=== PATIENT | female | born 1995 | race Caucasian/White ===

== ENCOUNTER 2023-06-09 16:24 | Inpatient (IN) | payer OTHER, SELFPAY ==
[2023-06-09] VITALS (28 sets, daily range): BP systolic 56–130; BP diastolic 30–110; BMI 41.3
--- NOTE | 2023-06-09 14:06 | ED.GENMED ---
History of Present Illness
General
Chief Complaint: Breathing Problem
Source: patient and other
Exam Limitations: clinical condition
Time Seen by Provider: 06/09/23 14:03
Travel History
Have you had any contact with someone who has COVID-19?: No
Do you have any symptoms of coronavirus? Fever > 100 degrees, chills, cough, shortness of breath, sore throat, loss of taste or smell, muscle aches, or headache?: Yes
Symptoms:: cough
History of Present Illness
History of Present Illness:
28-year-old female some cough and congestion the last few days. Significantly worse this morning. Presented to triage with a pulse ox in the 70s. Significant respiratory distress. History of opioid dependency. Has been at this facility for 1
week. Patient lives near [place].
Past History
Past History
ED Past Medical History: HTN and Other (Opioid dependency)
Review of Systems
Review of Systems
All Other Systems: Not applicable
Respiratory: Reports cough
Cardiac: Reports chest pain
Phy Exam
Physical Exam
Physical Exam:
GENERAL: Alert. Moderate respiratory distress. Significant hypoxia on arrival
EYE: Orbits normal.
NECK: Supple
CARDIAC: Tachycardic and regular no murmur
LUNGS: Coarse rhonchi throughout. Significant respiratory distress
ABDOMEN: Soft, without focal tenderness or distention
NEUROLOGICAL: Alert and oriented , grossly non-focal
SKIN: Warm and dry, no rash or lesion, no discoloration, skin intact.
MUSCULOSKELETAL: No edema,no deformity.Good color
PSYCH: Normal and appropriate interaction.
Course
Orders/Labs/Results
Orders:
Orders
06/09/23 14:05
CXR Port [CR Chest Portable - 1 View] Urgent
Comment:
Reason For Exam: sob
Reason Study Needs to be Portable: Unable to Transport
06/09/23 14:06
Electrocardiogram (*1) Stat
Reason for Study: Other
Other Reason for Exam: pneumonia
Cardiac Monitoring- Treatment ONCE
EKG- Treatment ONCE
IV Insert/Care/Rem.- Treatment PRN
O2 Therapy [RESP] Stat
Titrate/Wean O2 to maintain O2 sat greater than (%): 94
Pulse Ox/cont/shift [RESP] Stat
Quantity: 1
06/09/23 14:07
Test Result ONCE
06/09/23 14:15
Blood Culture Q30M
JOSÉ MIGUEL Source: Blood/Venous
Specimen Description:
06/09/23 14:16
Beta Hcg Serum Qualitative Screen [HCG, Serum Qualitative Screen] Urgent
COVID-19 Antigen Urgent
Source: Nasal Swab
Complete Blood Count/With Diff Urgent
Comprehensive Metabolic Panel Urgent
Lactic Acid Q4H
Comment: CANCEL 2nd LACTIC ACID IF 1st LACTIC ACID IS LESS THAN 2
Manual Differential Urgent
Pro-BNP [NT-proBNP] Urgent
Troponin I Urgent
Blood Culture Q30M
JOSÉ MIGUEL Source: Blood/Venous
Specimen Description:
Influenza A+B Rapid Molecular Urgent
JOSÉ MIGUEL Source: Nasal Swab
Specimen Description:
06/09/23 14:18
CefTRIAXone [Rocephin] 1,000 mg IV NOW STA
06/09/23 14:21
Venous Blood Gas Urgent
%Oxygen/Room Air: 100
06/09/23 14:26
Doxycycline Hyclate [Vibramycin] 100 mg 0.9% Sodium Chloride 250 ml [Nss] 250 ml IV NOW
06/09/23 14:35
Ondansetron Injectable [Zofran] 4 mg .ROUTE .STK-MED ONE
06/09/23 14:36
Ondansetron Injectable [Zofran] 4 mg IV NOW STA
06/09/23 14:39
0.9% Sodium Chloride 1000 ml [Nss] 1,000 ml IV BOLUS
Ipratropium/Albuterol Sulfate [Duoneb] 3 ml INH R NOW ONE
06/09/23 15:34
0.9% Sodium Chloride 1000 ml [Nss] 1,000 ml IV BOLUS
06/09/23 15:48
Ketorolac [Toradol] 15 mg .ROUTE .STK-MED ONE
Ketorolac [Toradol] 15 mg IV NOW STA
06/09/23 16:48
Lactic Acid Q4H
Comment: CANCEL 2nd LACTIC ACID IF 1st LACTIC ACID IS LESS THAN 2
Abnormal Lab Results
06/09/23 06/09/23
14:16 14:21
WBC 1.7 L* 10^3/uL
(4.8-10.8)
Abs Neuts (Manual) 1.0 L 10^3/uL
(1.4-6.5)
Segmented Neutrophils 34 L %
(42-75)
Band Neutrophils 26 H %
(0-3)
Monocytes (Manual) 15 H %
(2-9)
VBG pH 7.27 L
(7.32-7.43)
VBG pO2 54 H mmHg
(30-50)
VBG HCO3 19.7 L mmol/L
(22-27)
Sodium 134 L mmol/L
(135-145)
Carbon Dioxide 18 L mmol/L
(22-30)
Glucose 142 H mg/dl
(70-99)
Lactic Acid 3.2 H mmol/L
(0.7-2.0)
06/09/23 14:16
06/09/23 14:16
Vital Signs
Initial and Last Documented VS:
Initial Vital Signs
Temp Pulse Resp BP Pulse Ox
98.2 F 130 28 111/70 79
06/09/23 13:58 06/09/23 13:58 06/09/23 13:58 06/09/23 13:58 06/09/23 13:58
Last Documented Vital Signs
Temp Pulse Resp BP Pulse Ox
98.2 F 136 28 82/58 84
06/09/23 13:58 06/09/23 18:15 06/09/23 18:15 06/09/23 18:15 06/09/23 18:28
*Critical Care Note
Total Time (30-74mins, 75-104mins- exclusive of procedures): Not Applicable (70)
Update Note
Update Note:
1420... X-ray shows a severe bilateral pneumonia right greater than left. Discussed with radiology. Contacted pulmonary for their involvement. High flow nasal cannula workup in progress antibiotics.
1435.... updated at patient's okay. Explained her serious life-threatening nature.
1447... Many rechecks of this patient. Remains critically ill but doing okay on nonrebreather. Pulse ox about 90%.
1545.... I have been rechecking this patient multiple times. Pulse oxes have been running around 90%. Currently at 91%. Remains awake alert and able to speak. Appears clinically to be more of a oxygenation versus ventilation issue. Discussed
again and trying to get the patient to the ICU
1610... Oxygen saturations have actually gone up to 98%.
ED Attending Note
-
Portions of this chart may have been created with voice recognition software.� Occasional wrong word or��sound alike� substitutions may have occurred due to the inherent limitations of voice recognition software.
Discharge Plan
Departure
Patient Disposition: Admit
Date of Disposition: 06/09/23
Time of Disposition: 14:45
Presentation/result/management discussed w/ accepting MD/DO: Pulmonary
Discharge Problem:
Respiratory distress, Bilateral pneumonia, Influenza, Neutropenia
Interventions
Interventions:
*Risk Screen - Suicide Last Done: 06/09/23 15:57
*General Assessment Last Done: 06/09/23 14:33
*Neglect/Abuse Screening Last Done: 06/09/23 15:57
ED- Fall Risk Assessment Last Done: 06/09/23 14:05
*ED COVID-19 Vaccine History Last Done: 06/09/23 14:34
*Nursing Disposition Last Done: 06/09/23 16:50
ED- Cardiac Assessment Last Done: 06/09/23 14:05
ED- Pulmonary Assessment Last Done: 06/09/23 14:05
Discharge Date and Time
Discharge Date/Time: 06/09/23 16:52
[2023-06-09] MEDS: ROCEPHIN 1000 MG IV (14:24)
[2023-06-09 14:30] LABS: Hematocrit 40.5 % (37.0-47.0); Hemoglobin 13.8 g/dL (12.0-16.0); Mean Corp Hgb Conc. 34.1 g/dL (33.0-37.0); Mean Corpuscular Hgb 28.2 pg (27.0-31.0); Mean Corpuscular Volume 82.7 fL (81.0-99.0); Mean Platelet Volume 8.6 fL (7.4-10.4); Nucleated Red Blood Cells % 0 %; Platelet Count 288 10^3/uL (130-400); Red Cell Dist. Width 13.1 % (11.5-14.5)
[2023-06-09] MEDS: ZOFRAN 4 MG IV ×2 (14:36→19:27)
[2023-06-09 14:42] LABS: White Blood Cell Count 1.7 10^3/uL (4.8-10.8)
[2023-06-09 14:43] LABS: Lactic Acid 3.2 mmol/L (0.7-2.0)
[2023-06-09] MEDS: NSS 1000 IV ×2 (14:43→15:40)
[2023-06-09 14:48] LABS: COVID-19 Antigen Negative (Negative)
[2023-06-09 14:52] LABS: ALT (SGPT) 21 U/L (0-35); AST (SGOT) 27 U/L (14-36); Albumin 4.5 g/dl (3.5-5.0); Alkaline Phosphatase 115 U/L (38-126); Blood Urea Nitrogen 13 mg/dl (7-17); Calcium 8.5 mg/dl (8.4-10.2); Carbon Dioxide 18 mmol/L (22-30); Chloride 104 mmol/L (98-107); Estimated Creatinine Clearance 102 ml/min; Glucose 142 mg/dl (70-99); Sodium 134 mmol/L (135-145); Total Bilirubin 0.4 mg/dl (0.2-1.3); eGFR > 60.00
[2023-06-09 14:57] LABS: Venous Blood Gas HCO3 19.7 mmol/L (22-27); Venous Blood Gas O2 Sat % 85.9 %; Venous Blood Gas pCO2 43 mmHg (35-48); Venous Blood Gas pH 7.27 (7.32-7.43); Venous Blood Gas pO2 54 mmHg (30-50)
[2023-06-09 15:00] LABS: Venous Blood Gas O2 Therapy %Oxygen/Room Air 100
[2023-06-09 15:03] LABS: HCG, Serum Qualitative Screen Negative
[2023-06-09 15:19] LABS: Band Neutrophils 26 % (0-3); Lymphocytes 25 % (20-51); Monocytes 15 % (2-9); Platelets Checked YES; Segmented Neutrophils 34 % (42-75)
[2023-06-09 15:22] LABS: Normal RBC Morphology No
[2023-06-09 15:23] LABS: Ovalocytes FEW; Stomatocytes 1+
[2023-06-09 15:24] LABS: Total Cells Counted 100
[2023-06-09 15:25] LABS: Troponin I < 0.012 ng/ml
[2023-06-09] MEDS: VIBRAMYCIN 260 MG IV (15:25)
[2023-06-09 15:48] LABS: NT-proBNP 165 pg/ml
[2023-06-09] MEDS: TORADOL 15 MG IV ×2 (15:49→19:27)
--- NOTE | 2023-06-09 16:29 | PTCARENOTE ---
Pt arrived from ED with RNx2, with 6 liters nasal cannula and NRB mask. She is sitting upright. Right AC#20g protective catheter with IVF and Doxycycline infusing. Left AC protective catheter capped. Weak but palpable pulses. Extremities cool. She
is able to converse and make her needs known. C/O rib discomfort.
--- NOTE | 2023-06-09 16:35 | PTCARENOTE ---
Pt arrived from ED, received bedside report. Dr. Garcia on unit. She Arrived via stretcher sitting upright with 6 liters nasal cannula and NRB mask monitored with RNX2 and RPT. She is tachycardic, tachypneic, restless and tripoding on the bed. She
was instructed on the plan of care and oriented tot ICU. Dr. Scott on the unit as well and ordered IVF after NSS bolus complete. Doxycycline infusion complete upon arrival. Bilateral #20g protective catheters flushed and patent with blood return.
Dr. Garcia requested pt to prone. She was able to do a modified prone position inthe bed with oxygen saturations as low as 61%. Pt frequently removing HFNC that is now at 50liters 100% FiO2. She was informed that if this modality failed then it
would mean a ventilator and breathing tube. She verbalized her understanding. Breath sounds with insp/exp wheezing left upper lobe, dim in the right base. Obese. +BSx4. Poor appetite, coughing and pain preventing her from eating. C/O rib pain in her
upper abdominal quadrants. Labs obtained. RN remained with pt until she was comfortable and somewhat restful. She was able to void with purwick, urine sent as ordered. Urine dark gabriel. Safe environment maintained.
[2023-06-09] MEDS: D5/0.45%NACL 1000 IV (16:57)
--- NOTE | 2023-06-09 17:03 | HPS.HSE ---
Family Physician
-
Family Physician: * NONE
Chief Complaint
-
Myalgias, fever, cough, and shortness of breath
History of Present Illness
Patient is 28-year-old at the local drug rehab program. She is in for narcotic rehab program. She is originally from [facility] at the [place] of [place]. She got moved out here 60 days ago for rehab. She is not a 60-year for
rehab. The plan was for 90 to 120 days. History is from the patient as well as her on the phone.
3 days ago she started with the myalgias. She then started to have a cough is mostly dry instead of the short of breath.
On presentation to ER she was flu positive and she has bilateral pneumonia. She is requiring high FiO2. She is currently on high flow nasal cannula.
She vapes nicotine. She has been doing that for a while. Denies prior history of asthma or emphysema. Has not had her flu shot this year.
Denies any cardiac disease.
No prior history of pneumonias.
Denies any nausea or vomiting.
Medical History
Past Medical History
Past Medical History: Reports Other (Narcotic abuse-currently in rehab; denies IV drug abuse)
Past Surgical History: Reports None
Social History
Tobacco: Vaping
Alcohol: None
Drug: None
Personal:
Living: With Family
Family History
Family History: Not pertinent
Allergies / Home Medications
Allergies reflects when Allergies were last updated in [employer].
Home Medications with original date entered in [employer]
Allergy/Medication List:
Allergies
Allergy/AdvReac Type Severity Reaction Status Date / Time
No Known Allergies Allergy Unverified 06/09/23 13:58
Home Medications
acetaminophen 325 mg tablet (Tylenol) 625 mg PO DAILYPRN PRN FEVER 06/09/23
atomoxetine 25 mg capsule (Strattera) 25 mg PO DAILY 06/09/23
celecoxib 200 mg capsule (Celebrex) 200 mg PO DAILY 06/09/23
ighsticjv-QSD-GM-acetaminophen 7.5 mg-60 [id number]/30mL oral liqd 15 ml PO DAILYPRN PRN COLD LIKE SYSTOMS 06/09/23
hydroxyzine HCl 50 mg tablet 50 mg PO Q8HPRN PRN ANXIETY 06/09/23
ibuprofen 200 mg tablet (Advil) 200 mg PO DAILYPRN PRN MILD PAIN 06/09/23
mirtazapine 15 mg tablet 15 mg PO HS 06/09/23
naltrexone 50 mg tablet 50 mg PO HS 06/09/23
omeprazole 20 mg tablet,delayed release 20 mg PO DAILY 06/09/23
ondansetron HCl 4 mg tablet 4 mg PO Q6HPRN PRN NASUEA 06/09/23
Review of Systems
-
A 12 point ROS was completed and negative except as noted: Yes
Physical Exam
Vital Signs
Vital Signs
Temp Pulse Resp BP Pulse Ox
98.2 F 139 35 100/77 95
06/09/23 13:58 06/09/23 16:45 06/09/23 16:45 06/09/23 16:34 06/09/23 15:56
Physical Exam
General: No Apparent Distress
HEENT: Moist mucous membranes
Respiratory: Crackles (Bilateral lower zone) and Accessory Resp Muscle Use; No Wheezes or Non Labored Respirations
Cardiac: S1/S2, Regular Rhythm and Tachycardia
GI: Soft, Non Tender, Non Distended, Normal Bowel Sounds and Other (Obese)
Musculoskeletal: No Edema
Neuro: AO x 3
Psych: Calm
Laboratory Results
-
Laboratory Results
Lactic Acid 3.2 mmol/L (0.7-2.0) H 06/09/23 14:16
Total Bilirubin 0.4 mg/dl (0.2-1.3) 06/09/23 14:16
AST 27 U/L (14-36) 06/09/23 14:16
ALT 21 U/L (0-35) 06/09/23 14:16
Alkaline Phosphatase 115 U/L (38-126) 06/09/23 14:16
Troponin I < 0.012 ng/ml 06/09/23 14:16
Data Reviewed
-
Diagnostic Radiology: Report Reviewed by me (Chest x-ray)
Lab Data: Labs Reviewed by me
Impression/Plan
-
Acute hypoxic respiratory failure-secondary to pneumonia/acute influenza A infection. Currently requiring high flow nasal cannula. Respiratory status tenuous. Will see how she responds to initial treatment. Will consider intubation if not
responding or gets tired out. Patient admitted to ICU. Animal Skinner consulted.
Acute influenza A infection-start Tamiflu
Bilateral pneumonia-at the current time cannot rule out if it is related to influenza or a secondary bacterial infection. Along with Tamiflu will treat her with IV vancomycin and Zosyn, and Zithromax broadly until culture data is back.
Neutropenia-ANC around thousand. Suspect may be viral related. No prior history of bone marrow disease. Continue to follow and if worsening will consider hematology eval.
Narcotic abuse-currently under rehab. Continue with naltrexone. Will not give any narcotics for pain. Managed with Toradol as needed for pain for now.
Tobacco dlb-oxurnf-xrswlny on nicotine patch.
Full code.
Discussed with software engineer sales. Discussed with [employer] F[employer]
Discussed with Vijay her on the phone who lives out near [place]. Discussed about the diagnosis and the tenuous respiratory situation and including high likelihood of intubation. All his questions answered. He might come up later
tonight or tomorrow morning to the hospital.
[2023-06-09 17:09] LABS: Hematocrit 36.2 % (37.0-47.0); Hemoglobin 11.9 g/dL (12.0-16.0); Mean Corp Hgb Conc. 32.9 g/dL (33.0-37.0); Mean Corpuscular Hgb 27.9 pg (27.0-31.0); Mean Corpuscular Volume 84.8 fL (81.0-99.0); Mean Platelet Volume 8.5 fL (7.4-10.4); Nucleated Red Blood Cells % 0 %; Platelet Count 210 10^3/uL (130-400); Red Blood Cell Count 4.27 10^6/uL (4.20-5.40)
[2023-06-09 17:11] LABS: HCG, Urine Qualitative Screen Negative
[2023-06-09 17:18] LABS: INR 1.33; PT 16.3 Sec (11.4-14.6)
[2023-06-09 17:19] LABS: APTT 36.2 Sec (23.4-35.0)
[2023-06-09 17:20] LABS: Lactic Acid 3.4 mmol/L (0.7-2.0)
[2023-06-09 17:22] LABS: Blood Urea Nitrogen 15 mg/dl (7-17); Carbon Dioxide 17 mmol/L (22-30); Chloride 109 mmol/L (98-107); Estimated Creatinine Clearance 102 ml/min; Glucose 132 mg/dl (70-99); Magnesium 1.7 mg/dl (1.6-2.3); Phosphorus 4.5 mg/dl (2.5-4.5); Potassium 4.1 mmol/L (3.5-5.1); Sodium 136 mmol/L (135-145); White Blood Cell Count 0.7 10^3/uL (4.8-10.8); eGFR > 60.00
[2023-06-09] MEDS: ZOSYN 50 IV ×2 (17:27→23:21)
[2023-06-09] MEDS: VANCOCIN 540 MG IV (17:27)
[2023-06-09] MEDS: TYLENOL 650 MG PO (17:27)
[2023-06-09] MEDS: LOVENOX 40 MG SC (17:28)
[2023-06-09] MEDS: ATARAX 50 MG PO (17:33)
--- NOTE | 2023-06-09 17:38 | CON.INTV ---
Consultation
Consultation Request
Date/Time Consultation Requested: 06/09/2023
Date/Time Consultation Performed: 06/09/2023
Requesting Provider: Dr. Scott
Performing Provider: Dr. Alfredo Garcia
Reason for Consultation: Acute hypoxemic respiratory failure
Medical History
-
History of Present Illness:
28-year-old woman with history of IV drug abuse, currently on rehab for the last several weeks. She lives closer to [place]. She has been on rehab for the last 60 days. She reports 3 days of myalgias, coughing and subsequently shortness of
breath.
Came to the emergency room for evaluation. She was found to be hypoxemic. Bilateral infiltrates on chest x-ray.
She tested positive for influenza A. Currently on high flow oxygen with borderline hypoxemia.
Denies any hemoptysis or significant phlegm production. Denies any chest pain.
Denies leg edema.
Does not recall sick contacts.
Patient reports Vaping nicotine.
Denies prior pulmonary problems.
Denies prior pneumonia.
Denies any other significant medical problems.
Past Medical History
Past Medical History: Other (See assessment and plan section)
Social History
Tobacco: Vaping (Nicotine)
Alcohol: None
Drug: Other (Patient currently on rehab program.)
Personal:
Family History
Family History: Reviewed & Not Pertinent
Allergies / Home Medications
Allergies
Allergy/AdvReac Type Severity Reaction Status Date / Time
No Known Allergies Allergy Unverified 06/09/23 13:58
Home Medications
�Medication �Instructions �Recorded �Confirmed �Last Taken �Type
acetaminophen 325 mg tablet 625 mg PO DAILYPRN PRN FEVER 06/09/23 06/09/23 06/09/23 History
(Tylenol)
atomoxetine 25 mg capsule 25 mg PO DAILY 06/09/23 06/09/23 06/09/23 History
(Strattera)
celecoxib 200 mg capsule (Celebrex) 200 mg PO DAILY 06/09/23 06/09/23 06/09/23 History
dgdyqxmkd-WLD-VI-acetaminophen 7.5 15 ml PO DAILYPRN PRN COLD LIKE 06/09/23 06/09/23 06/09/23 History
mg-60 [id number]/30mL oral liqd SYSTOMS
hydroxyzine HCl 50 mg tablet 50 mg PO Q8HPRN PRN ANXIETY 06/09/23 06/09/23 Unknown History
ibuprofen 200 mg tablet (Advil) 200 mg PO DAILYPRN PRN MILD PAIN 06/09/23 06/09/23 06/09/23 History
mirtazapine 15 mg tablet 15 mg PO HS 06/09/23 06/09/23 06/08/23 History
naltrexone 50 mg tablet 50 mg PO HS 06/09/23 06/09/23 06/08/23 History
omeprazole 20 mg tablet,delayed 20 mg PO DAILY 06/09/23 06/09/23 06/09/23 History
release
ondansetron HCl 4 mg tablet 4 mg PO Q6HPRN PRN NASUEA 06/09/23 06/09/23 06/09/23 History
Review of Systems
-
History Source: Patient
All other systems: Negative unless noted
Vitals / Labs / Diagnostic Testing
Vital Signs
Temp Pulse Resp BP Pulse Ox
98.2 F 139 35 100/77 95
06/09/23 13:58 06/09/23 16:45 06/09/23 16:45 06/09/23 16:34 06/09/23 15:56
Lab Data
06/09/23 16:48
06/09/23 16:48
Laboratory Results
06/09/23
16:48
PT 16.3 H
INR 1.33
APTT 36.2 H
Microbiology
06/09/23 14:16 Nasal Swab Influenza Types A & B (MOLLY) - Final
Influenza A Positive, NAAT
Diagnostic Testing:
Physical Exam
-
HEENT: Normocephalic
Cardiovascular: S1/S2
Respiratory: Rales and Accessory Resp Muscle Use (mild)
GI: Soft and Non Distended
Neurology: Awake, Alert, Oriented and No Motor Deficits
Skin: Warm
General: Respiratory Distress (moderate)
Assessment
-
Acute hypoxemic respiratory failure due to bilateral pneumonia currently on high flow oxygen.
Influenza positive
Cannot rule out bacterial superinfection given asymmetry on infiltrates.
Neutropenia-likely due to infection.
Conditions present prior admission:
History of narcotic abuse currently on rehab program
Vaping nicotine.
Assessment and plan:
Respiratory status is tenuous, patient has increased work of breathing with activity, feels anxious.
On high flow oxygen 100% FiO2, does not tolerate high flow's.
Will use a nonrebreather and top
Encourage self prone positioning
Discussed with Dr. Scott: Will treat for bacterial superinfection with Zosyn/vancomycin/azithromycin
MRSA screening
A sputum culture and blood culture if possible
I agree with Tamiflu
Incentive spirometry if possible
-
Head of the bed elevation
Aspiration precautions
-
Situation is very high risk.
Patient may be progressing to ARDS, intubation will be necessary. Unlikely to tolerate noninvasive mechanical ventilation. Would intubate only if there is significant increased work of breathing. If patient is stable despite hypoxemia without
increased work of breathing will continue with supportive care.
If intubated then will provide low volume/ARDSnet protocol mechanical ventilation.
-
--- NOTE | 2023-06-09 18:11 | PTCARENOTE ---
Dr. Garcia aware of oxygen saturations 86-82% on HFNC.
--- NOTE | 2023-06-09 19:11 | PHA.VAN.IN ---
Assessment
- Assessment
Renal Function: Unknown baseline
Concomitant Antimicrobials: azithromycin, piperacillin/tazobactam, oseltamivir
AUC Dosing Plan
- Dosing Variables
Dosing Weight (kg): 99
Dosing CrCl (ml/min): 102
Vd coefficient (L/kg): 0.5 - 0.6
- Empiric Dosing
Initial / Loading Dose: vanc 2000mg
Maintenance Regimen: vanc 1000mg Q8 starting 06/09 06
Estimated AUC (mcg*h/mL): 444 - 533
Estimated Peak (mcg*h/mL): 24.8 - 29.7
Estimated Trough (mcg/ml): 13.3 - 15.9
Estimated Half Life (H): 7.8
- Monitoring
No levels ordered at this time: consider levels in next few days
MRSA Screen: Ordered per protocol
Pharmacokinetics Vancomycin I
- -
Patient Age: 28
Patient Sex: Female
Vancomycin Day #: 1
Indication: Pulmonary/Respiratory
Requesting Provider: Dr. Scott
Pertinent Antimicrobial Allergies:
no pertinent antimicrobial allergies
Height / Weight:
Height 5 ft 1 in
Actual Weight 99 kg
IBW in k.8
Adjusted BW in k.3
Pertinent Past Medical History: BMI ~41, hx IV drug abuse
- Vital Signs / Lab Results
Temp Pulse Resp BP Pulse Ox
98.2 F 136 28 82/58 84
06/09/23 13:58 06/09/23 18:15 06/09/23 18:15 06/09/23 18:15 06/09/23 18:28
Lab Results - Hematology
06/09/23 06/09/23
14:16 16:48
WBC 1.7 L* 0.7 L*
Band Neutrophils 26 H
Lab Results - Chemistry
06/09/23 06/09/23
14:16 16:48
BUN 13 15
Creatinine 0.9 0.9
Estimated Creat Clear 102 102
Albumin 4.5
06/09/23 06/09/23
14:16 16:48
Lactic Acid 3.2 H 3.4 H
Microbiology Results
06/09/23 16:56 Legionella Urinary Antigen - Final
Urine Negative for Legionella pneumophila Serogroup 1 antigen.
A negative result does not rule out the possiblity of
Legionella infection due to other serogroups or species of
Legionella. Clinical correlation is recommended.
Streptococcus pneumoniae Antigen (M - Final
Negative for Streptococcus pneumoniae antigen.
A negative result does not exclude infection with
Streptococcus pneumoniae. Clinical correlation is
recommended.
06/09/23 14:16 Influenza Types A & B (MOLLY) - Final
Nasal Swab Influenza A Positive, NAAT
[2023-06-09] MEDS: TAMIFLU 75 MG PO (19:28)
[2023-06-09] MEDS: PRECEDEX 100 IV (19:56)
--- NOTE | 2023-06-09 20:00 | PTCARENOTE ---
Pt flu positive with vaping history rec'd on 60L 100%, anxious all over the bed, sat 60s RR high 30, ST BP 90s/50s. Precedex hung as ordered with minimal effect on pt presentation. VBG sent and resulted. Awaiting further orders.
[2023-06-09 20:30] LABS: Venous Blood Gas B.E. -7.4 mmol/L (-4 to +4); Venous Blood Gas HCO3 20.1 mmol/L (22-27); Venous Blood Gas O2 Sat % 28.5 %; Venous Blood Gas pCO2 48 mmHg (35-48); Venous Blood Gas pH 7.23 (7.32-7.43); Venous Blood Gas pO2 21 mmHg (30-50)
[2023-06-09] MEDS: SUBLIMAZE 25 MCG IV (21:14)
[2023-06-09] MEDS: DIPRIVAN 100 IV (21:15)
[2023-06-09] MEDS: SUBLIMAZE 100 IV (21:30)
[2023-06-09] MEDS: SUBLIMAZE 100 MCG IV (21:33)
[2023-06-09] MEDS: NORCURON 10 MG IV ×2 (21:37→22:40)
[2023-06-09] MEDS: LEVOPHED 250 IV (21:38)
[2023-06-09 22:26] LABS: Venous Blood Gas B.E. -11.6 mmol/L (-4 to +4); Venous Blood Gas HCO3 18.3 mmol/L (22-27); Venous Blood Gas O2 Sat % 48.6 %; Venous Blood Gas pCO2 59 mmHg (35-48); Venous Blood Gas pO2 33 mmHg (30-50)
[2023-06-09] MEDS: OFIRMEV IV (22:39)
[2023-06-09] MEDS: CALCIUM GLUCONATE 130 MG IV (22:39)
[2023-06-09] MEDS: FLUSH (NSS) 10 FLUSH IV (22:40)
[2023-06-09] MEDS: STERILE WATER FOR INJECTION 10 ML IV (22:41)
[2023-06-09 22:42] LABS: Lactic Acid 4.1 mmol/L (0.7-2.0)
--- NOTE | 2023-06-09 22:55 | W.PN.ANESINT ---
Anesthesia Intubation Note
- Intubation Note
Intubation Note:
Diagnosis: hypoxia, acute respiratory failure
Blade: mac 4
Tube Size: 8.0
Depth: 22cm
Side Taped: right
Drugs Used: propofol 80mg, succ 100mg
Grade View: 1
EtCO2 Present: yes
Atraumatic: yes
Attempts: 1
Insertion Start and Stop Time:
SaO2 Pre: 60
SaO2 Post: 66
Glidescope Used: yes
Other Airway Adjustments:
Pre-Oxygenated: yes
Portable Chest X-Ray: p
RSI:
Suctioned: no
Bilateral Breath Sounds Confirmed: yes
Vent Settings:
Settings per _x__Attending Physician
[2023-06-09] MEDS: REFRESH CELLUVISC GEL OPHTH (23:32)
[2023-06-09] MEDS: NORCURON 250 MG IV (23:42)
[2023-06-10] VITALS (51 sets, daily range): BP systolic 34–178; BP diastolic 23–103; BMI 41.7
[2023-06-10 00:17] LABS: B.E. -11.9 mmol/L; Ionized Calcium 1.28 mMOL/L (1.15-1.33); PCO2 58 mmHg (32-35); Potassium 5.6 mMOL/L (3.5-5.1); Sodium 130 mMOL/L (136-145)
[2023-06-10 00:18] LABS: O2 Therapy 100%; PO2 55 mmHg (83-108)
[2023-06-10] MEDS: OFIRMEV 100 IV ×3 (00:21→10:31)
--- NOTE | 2023-06-10 00:40 | PTCARENOTE ---
Decision made to intubate pt, pt more than agreeable, family made aware via phone (on the way from [place]). Sat 38-60% on NRB and HFNC prior to intubation. Pt anxious and said she was 'done and ready'. Fent/Prop/SUCC given by anesthesia. #8
@22lip confirmed by XRAY. Levo/Prop/Fent gtts as ordered, along with PRN Vecuronium for vent dyssynchrony. Sat 40-50% post intubation with slow recovery to the 60s. Train of 4, 4/4 at 4 for baseline. After several PRN doses needed, Vec drip
initiated as ordered. Pt remains tachycardic 134, BP maintained with Levo (SYS goal 90). Vent settings as ordered with sat 60%. ABG sent and resulted. VICENTA Nichols aware and at bedside for eval. VICENTA Nichols reached out to MD Rockwell as well. Will
monitor.
[2023-06-10 00:50] LABS: Triglycerides 197 mg/dl (10-149)
[2023-06-10 00:59] LABS: Blood Urea Nitrogen 21 mg/dl (7-17); Calcium 8.7 mg/dl (8.4-10.2); Carbon Dioxide 16 mmol/L (22-30); Chloride 107 mmol/L (98-107); Estimated Creatinine Clearance 84 ml/min; Glucose 122 mg/dl (70-99); Potassium 4.1 mmol/L (3.5-5.1); Sodium 133 mmol/L (135-145); eGFR > 60.00
[2023-06-10] MEDS: SODIUM BICARBONATE 100 MEQ IV (01:15)
--- NOTE | 2023-06-10 01:20 | W.PN.UPDATE ---
Update Note
Progress Note Update
�
1921: Patient's respiratory status continues to decline on high flow nasal cannula (Os dropping into low 80s). Patient started on low dose dexmedetomidine for anxiety. �
2010: VBG done = 7.23/48 on 100% 60 flow. Attending updated on results.� Ok with continuing to monitor.�
2029: Respiratory status continues to decline. I discussed with the patient and called the patient about intubation, and both were hesitant about intubating. �
2099: Patient expressed that she is starting to tire and is ok with intubation ( 02 sat down to 75).�
2121: Patient intubated = O2 sat drop to as low as�28% during intubation. �
2131: Patient dyssynchronous with vent, vecuronium given. O2 sat in the 50s�
2221: VBG sent 7.1/59/33, lactic 4.1�
2314: Kim attempted, able to thread, able to get ABG off stick. �
0010: Family at bedside and updated on current situation�
0020 ABG sent (Result discussed with attending: Increased to RR 30 and planning for proning in am).�
--- NOTE | 2023-06-10 01:55 | PTCARENOTE ---
ABG sent, 7.10 CO2 58, PO2 55, HCO3 18, 84SAT. RR increased to 30. 2Amps Bicarb given. Remains tachy 140s, BP sys goal 90, Sat on monitor. 67%. Family at bedside and updated. Will monitor.
--- NOTE | 2023-06-10 04:04 | VATNOTE ---
5FR DL R PICC INSERTED DOCUMENTED. PICC TIP MALPOSITIONED AND NEEDED TO BE REDIRECTED AND RETRACTED X2. PER ZITA Jo. POST TIP NOW CAJ AND GOOD TO USE. PCN AWARE OF INTERVENTION AND OUTCOME.
[2023-06-10] MEDS: DIPRIVAN 100 IV ×3 (04:23→14:27)
[2023-06-10 04:38] LABS: B.E. -10.7 mmol/L; HCO3 17.5 mmol/L (21-28); PCO2 47 mmHg (32-35)
[2023-06-10 04:40] LABS: O2 Therapy 100%
[2023-06-10 04:41] LABS: O2 Saturation % 73.8 % (94-98)
[2023-06-10 04:43] LABS: PO2 50 mmHg (83-108); pH 7.18 (7.35-7.45)
[2023-06-10 04:47] LABS: Hemoglobin 11.8 g/dL (12.0-16.0); Mean Corp Hgb Conc. 32.8 g/dL (33.0-37.0); Mean Corpuscular Hgb 28.3 pg (27.0-31.0); Mean Corpuscular Volume 86.3 fL (81.0-99.0); Platelet Count 238 10^3/uL (130-400); Red Blood Cell Count 4.17 10^6/uL (4.20-5.40); White Blood Cell Count 2.7 10^3/uL (4.8-10.8)
[2023-06-10 05:09] LABS: Absolute Neutrophils -Man Diff 1.9 10^3/uL (1.4-6.5); Band Neutrophils 29 % (0-3); Lymphocytes 25 % (20-51); Segmented Neutrophils 43 % (42-75)
[2023-06-10 05:10] LABS: Anisocytosis 1+; Lactic Acid 5.4 mmol/L (0.7-2.0); Metamyelocytes 3 % (-); Normal RBC Morphology No; Platelets Checked Yes
[2023-06-10 05:11] LABS: Total Cells Counted 100
[2023-06-10] MEDS: VANCOCIN 200 IV (05:23)
[2023-06-10] MEDS: ZOSYN 50 IV ×2 (05:23→11:16)
[2023-06-10 05:40] LABS: ALT (SGPT) 24 U/L (0-35); AST (SGOT) 58 U/L (14-36); Alkaline Phosphatase 53 U/L (38-126); Blood Urea Nitrogen 24 mg/dl (7-17); Calcium 7.8 mg/dl (8.4-10.2); Carbon Dioxide 18 mmol/L (22-30); Chloride 103 mmol/L (98-107); Estimated Creatinine Clearance 62 ml/min; Glucose 110 mg/dl (70-99); Magnesium 1.9 mg/dl (1.6-2.3); Potassium 4.6 mmol/L (3.5-5.1); Sodium 138 mmol/L (135-145); Total Bilirubin 0.5 mg/dl (0.2-1.3); Total Protein 5.2 g/dl (6.3-8.2); eGFR 48.98
[2023-06-10] MEDS: SODIUM BICARBONATE 50 MEQ IV ×3 (06:15→14:18)
[2023-06-10] MEDS: SODIUM BICARBONATE 1150 MEQ IV ×2 (07:02→13:45)
--- NOTE | 2023-06-10 07:20 | PTCARENOTE ---
Most recent ABG pH 7.18. Order noted to increase RR to 32, give 2 amps bicarb followed by bicarb gtt. Report given to oncoming shift. Will monitor.
[2023-06-10] MEDS: NEO-SYNEPHRINE 250 IV ×3 (07:56→14:47)
[2023-06-10] MEDS: MIRALAX 17 GRAMS TUBE (08:05)
[2023-06-10] MEDS: PROTONIX IV 40 MG IV (08:05)
[2023-06-10] MEDS: NSS (PRESERVATIVE FREE) 10 ML IV (08:06)
[2023-06-10] MEDS: REFRESH CELLUVISC GEL 1 DROPS OPHTH (08:06)
[2023-06-10] MEDS: LEVOPHED 250 IV ×4 (08:07→14:18)
[2023-06-10] MEDS: TAMIFLU 75 MG TUBE (08:07)
[2023-06-10] MEDS: ZITHROMAX INFUSION 250 IV (08:07)
--- NOTE | 2023-06-10 08:30 | W.PN.HOSP.TC ---
Today's Communication/Plan
-
See detailed plan above
Assessment / Plan
Assessment / Plan
Acute hypoxic respiratory failure-secondary to pneumonia/acute influenza A infection. Patient had further deterioration overnight and requiring intubation. Having issues with hypoxemia this morning. She is on 100% FiO2 via ventilator. She is
paralyzed and sedated. Plans for prone ventilation noted.
ARDS-secondary to pneumonia/sepsis. Continue with ventilator management per final application reviewer.
Shock requiring multiple pressors suspect sepsis. Continue with vasopressors to MAP of more than 65. Will get an echocardiogram. Check cortisol. Consult infectious disease.
Acute influenza A infection-continue with Tamiflu. Patient with rapid deterioration in oxygenation since admission.Consult ID for antiviral tx if any at this point in her dz.
Bilateral pneumonia-at the current time cannot rule out if it is related to influenza or a secondary bacterial infection. Along with Tamiflu she is on IV vancomycin and Zosyn, and Zithromax broadly until culture data is back.Check HIV.
Neutropenia-ANC around thousand. Suspect may be viral related. No prior history of bone marrow disease. Improved this am. Bandemia noted.
VANIA - developing VANIA .suspect multifactorial including sepsis/ HD related . Consult Nephrology
Narcotic abuse-currently under rehab. Continue with naltrexone. Will not give any narcotics for pain. Managed with Toradol as needed for pain for now.
Tobacco use-pt vapes .Counselling when awake
VASU ICURN
VASU Personal Banking Officer
DW and [id number] and went over the rapid deterioration of her clinical situation including severe hypoxia and now shock requiring multiple pressors. Told that her risk of mortality is high especially with septic shock and severe
hypoxemia.
Full code.
Total Critical Care Time__35___ minutes. I was immediately available to the patient and staff. I personally examined, reviewed labs, diagnostic images/reports, interpretations, treatment plans, discussed patient care with other providers and
family or caregivers (if patient is unable to make decisions), entered orders as appropriate and documented the medical record.
While awaiting the staff patient noted patient had a cardiac arrest. PEA code from which she got resuscitated with ROSC. See code chart
Anticipated Discharge: > 48 hours
Subjective/Interval History
-
Date of Service: June 10, 2023
Rapid deterioration overnight needing to be placed on ventilator. Significant hemodynamic instability requiring multiple pressors now.
Patient currently intubated and sedated. No interval history from the patient.
and [id number] at bedside- no recent infections ; no hx of immune issues;no concerns for HIV.
Major recent issues is pain pill addiction needing her to come to place in [facility] for drug rehab.
Objective Data
-
Labs:
Laboratory Results
06/09/23 06/09/23 06/10/23
23:38 23:58 04:30
WBC
Hgb
Hct
Plt Count
HCO3 18.0 L 17.5 L
Sodium 133 L
Potassium 4.1
Chloride 107
Carbon Dioxide 16 L
BUN 21 H
Creatinine 1.1 H
Glucose 122 H
Calcium 8.7 D
Total Bilirubin
AST
ALT
Alkaline Phosphatase
06/10/23
04:36
WBC 2.7 L
Hgb 11.8 L
Hct 36.0 L
Plt Count 238
HCO3
Sodium 138
Potassium 4.6
Chloride 103
Carbon Dioxide 18 L
BUN 24 H
Creatinine 1.5 H
Glucose 110 H
Calcium 7.8 L
Total Bilirubin 0.5
AST 58 H
ALT 24
Alkaline Phosphatase 53
Vital Signs:
Vital Signs
Temp Pulse Resp BP Pulse Ox
99.7 F 141 32 67/44 67
06/10/23 07:35 06/10/23 07:15 06/10/23 07:15 06/10/23 07:00 06/10/23 08:09
I&O
06/09/23 06/10/23 06/11/23
06:59 06:59 06:59
Intake Total 1938.3 / 2132.3 194.0 / 194.0
Output Total 1245 / 1245
Balance 693.3 / 887.3 194.0 / 194.0
Review of Systems
-
Unable to obtain full review of systems at this time due to: Patient Intubation
Physical Exam
-
General: No Apparent Distress
HEENT: Other (intubated)
Respiratory: Clear to Auscultation (anteriorly)
Cardiac: Regular Rhythm, S1/S2 and Tachycardic
GI: Soft and Normal Bowel Sounds
Genito-urinary: Clear Urine and Vasquez
Musculoskeletal: No Edema
Neuro: Sedated; Negative Awake, Alert or Oriented
Data Reviewed
-
Labs: Labs Reviewed by me
[2023-06-10 09:03] LABS: Hematocrit 29.3 % (37.0-47.0); Hemoglobin 9.4 g/dL (12.0-16.0); Mean Corp Hgb Conc. 32.1 g/dL (33.0-37.0); Mean Corpuscular Hgb 28.5 pg (27.0-31.0); Mean Corpuscular Volume 88.8 fL (81.0-99.0); Mean Platelet Volume 9.2 fL (7.4-10.4); Platelet Count 166 10^3/uL (130-400); Red Cell Dist. Width 13.2 % (11.5-14.5); White Blood Cell Count 3.1 10^3/uL (4.8-10.8)
--- NOTE | 2023-06-10 09:03 | CON.CAR ---
Addendum entered and electronically signed by Delmar Ireland MD 06/10/23 14:29:
I saw and examined the patient.
The Business Services Sales Representative's note was reviewed and I agree with the note.
Comment:
GEN: No distress, intubated
HEENT: supple, anicteric, mmm, ET tube
LUNGS: diffuse rhonchi
CV: Reg, tachy, S1/S2, 1/6 syst LSB, no gallop
ABD: soft, BS+, NT/ND
EXT: +1 edema
NEURO: unable to assess
SKIN: No rash
Plan:
Called to see patient during cardiac arrest. Briefly patient is a 28-year-old female with a past medical history of chronic opioid dependence living at a local rehab who presented with for fulminant influenza, respiratory failure, hypotension, and
likely ARDS. She had several days of symptoms and presented with marked hypoxemia and myalgias with a pulse ox in the 70s. She was started on high flow oxygen and a nonrebreather and ultimately was intubated. Her blood pressure was poor and over
the next 12 hours Levophed, vasopressin, and Suhail-Synephrine were started for blood pressure support. She continued to have marked hypoxemia and ultimately had a PEA arrest. CPR was initiated with multiple cycles of epinephrine and ultimately she
regained a pulse and blood pressure. Over the next hour she had 2 other similar events of marked hypoxemia and PEA arrest requiring multiple cycles of CPR and epinephrine. I performed a brief bedside echocardiogram which revealed no pericardial
effusion with severe global LV hypokinesis with EF of 15% with a mildly dilated right ventricle and mild RV hypokinesis.
At that point decision was made to pursue ECMO CT surgeon was consulted urgently and the patient was accessed/cannulated by Dr. Vergara in the perfusion team and ECMO was initiated. Her oxygen saturations increased from 60% to 95% once the ECMO was
initiated. She remains on Levophed, vasopressin, Suhail-Synephrine, and epinephrine. She remains on 100% FiO2.
We will check a full transthoracic echo and ECG, however I suspect at this point her reduction in ejection fraction is due to full pulmonary sepsis/ARDS. There was no pericardial effusion.
Her hemoglobin is 9.0 and she now has acute renal failure with acute liver failure and transaminitis. I suspect this is due to hypotension/ARDS and sepsis.
Continue supportive care and antivirals per infectious disease.
Troponin initially was negative. Again, I suspect this is a primary respiratory failure event with PEA and then subsequent diffuse cardiomyopathy.
With her hypotension requiring multiple pressors she is unable to tolerate any medication at this point for cardiomyopathy. Will continue pressor support.
I suspect she likely will proceed into some level of worsening kidney failure as well.
Agree with plan to transfer to tertiary center to continue to manage her ECMO. Current flow is 5.3.
Case discussed multiple times at length with nursing staff, code team, and solutions executive cloud sales.
Critical care time 2 hours and 15 minutes
Original Note:
Consultation
Consultation Request
Date/Time Consultation Requested: 06/10/23
Date/Time Consultation Performed: 06/10/23
Requesting Provider: Dr. Scott
Performing Provider: Dr. Ireland
Reason for Consultation: Code 9
Medical History
-
History of Present Illness:
Patient admitted with hypoxia and influenza yesterday, intubated overnight and then with PEA arrest this morning to which cardiology responded and is now consulted. Patient lives near [place], but is staying at a local drug rehab to get help with
opioid addiction. By review of all available [facility] records the patient came to [facility] yesterday with days worth of myalgias and hypoxia with initial pulse ox in the 70s. Patient was admitted and started on high flow oxygen via NC and then NRB.
Pulse ox continued to drop and intubation was recommended, but patient and were hesitant until patient expressed that she was tired and agreeable to intubation. Patient then had PEA arrest. CPR with chest compressions. Urgent bedside echo
with EF 15%. Ongoing code with intermittent return of pulse.
PMH:
Chronic opioid dependance
h/o vaping, nicotine
Past Medical History
Past Medical History: Other (in HPI)
Past Surgical History: None
Social History
Tobacco: Vaping
Alcohol: None
Drug: Narcotics (currently completing a rehab program locally for opioid dependence)
Personal:
Living: Other (previously living with family near [place], but currently completing a rehab program locally)
Family History
Family History: Reviewed & Not Pertinent
Allergies / Home Medications
Allergy/AdvReac Type Severity Reaction Status Date / Time
No Known Allergies Allergy Unverified 06/09/23 13:58
�Medication �Instructions �Recorded �Confirmed �Type
acetaminophen 325 mg tablet 625 mg PO DAILYPRN PRN FEVER 06/09/23 06/09/23 History
(Tylenol)
atomoxetine 25 mg capsule 25 mg PO DAILY 06/09/23 06/09/23 History
(Strattera)
celecoxib 200 mg capsule (Celebrex) 200 mg PO DAILY 06/09/23 06/09/23 History
igfqxyllz-NOO-LK-acetaminophen 7.5 15 ml PO DAILYPRN PRN COLD LIKE 06/09/23 06/09/23 History
mg-60 [id number]/30mL oral liqd SYSTOMS
hydroxyzine HCl 50 mg tablet 50 mg PO Q8HPRN PRN ANXIETY 06/09/23 06/09/23 History
ibuprofen 200 mg tablet (Advil) 200 mg PO DAILYPRN PRN MILD PAIN 06/09/23 06/09/23 History
mirtazapine 15 mg tablet 15 mg PO HS 06/09/23 06/09/23 History
naltrexone 50 mg tablet 50 mg PO HS 06/09/23 06/09/23 History
omeprazole 20 mg tablet,delayed 20 mg PO DAILY 06/09/23 06/09/23 History
release
ondansetron HCl 4 mg tablet 4 mg PO Q6HPRN PRN NASUEA 06/09/23 06/09/23 History
Review of Systems
-
History Source: Physician
All other systems: Negative unless noted
Physical Exam
Vital Signs
Temp Pulse Resp BP Pulse Ox
99.7 F 141 32 67/44 67
06/10/23 07:35 06/10/23 07:15 06/10/23 07:15 06/10/23 07:00 06/10/23 08:09
GEN: Active code 9 with CPR. Unresponsive
HEENT: MMM
LUNGS: Intubated and on the ventilator
CV: Pulseless, chest compressions with CPR
ABD: ND
EXT: No edema B/L
NEURO: Unresponsive during code
SKIN: No rash
Lab Results
Troponin I < 0.012 ng/ml 06/09/23 14:16
Abv-X-Swfifjxoeym Pept 165 pg/ml 06/09/23 14:16
Impression / Plan
-
PCP: None locally
Cardiology: None locally
Impression:
In-hospital cardiac arrest 06/10/23
Admitted with acute hypoxic respiratory failure 06/09/23
Intubated late night 06/09/23
Severe influenza A
ARDS
Possible superimposed bacterial PNA
Shock and multisystem organ failure
Chronic opioid dependance
h/o vaping, nicotine
CM EF 15% by urgent limited bedside echo study 06/10/23
Neutropenia
Echo 06/10/23: Bedside study, limited, EF 15%
Plan:
-Patient admitted with hypoxia and influenza yesterday, intubated overnight and then with PEA arrest this morning to which cardiology responded and is now consulted. Patient lives near [place], but is staying at a local drug rehab to get help
with opioid addiction. By review of all available [facility] records [facility] with days worth of myalgias and hypoxia with initial pulse ox in the 70s. Patient was admitted and started on high flow oxygen via NC and then NRB.
Pulse ox continued to drop and intubation was recommended, but patient and were hesitant until patient expressed that she was tired and agreeable to intubation. Patient then had PEA arrest. CPR with chest compressions. Urgent bedside echo
with EF 15%. Ongoing code with intermittent return of pulse.
-EF 15% by an urgent limited bedside echo.
-Details of code on code chart, but essentially PEA arrest this AM with chest compressions and ROSC. Recurrent PEA. Bedside cannulation for ECMO and transfer to [place] or [place] being pursued.
-Ordered 2 units PRBCs, 2 units FFP and 2 packs platelets for ECMO placement
-Broad spectrum antibiotics recommended after bedside ECMO cannulation
-ECG from yesterday reviewed by me shows sinus tachycardia without ischemic change.
[2023-06-10] MEDS: ALBUMIN 5% 250 IV ×2 (09:09→10:31)
--- NOTE | 2023-06-10 09:10 | CON.ID ---
Addendum entered and electronically signed by Manju Gonzalez MD 06/10/23 11:18:
HIV screen resulted - negative
repeat covid ag pending
Original Note:
Consultation
-
Date/Time Consultation Requested: 06/10/23 5:44
Date/Time Consultation Performed: 06/10/23 9:10
Requesting Provider: Simone
Performing Provider: Dr Gonzalez
Reason for Consultation: Severe PNA
Chief Complaint / Past History
Chief Complaint
Myalgias, fever, cough, and shortness of breath
History of Present Illness
Ms Puri is a 28 year old female with history notable for narotic abuse (denies IVDU); she is orginally from [facility] and moved here two months ago for a drug rehabilitation program. Also class III obesity. Three days ago developed
myalagias, then dry cough and shortness of breath. Also vapes nicotine. Didnt get her flu shot.
Since arrival here she has been febrile to a Tmax of 100.5, she is HD unstable with escalating pressor requirements norepi now up to 15 mcg/min, vasopressin on, inital wbc was 1.7 now 3.1, hgb on arrival 13.8 now 9.4, plt 166, there is a bandemia,
she has been acidotic pH this am 7.1 now 7.18, pco2 47, p02 50, hco3 17.5, hcg neg, cr 1.9 today 0.9 on arrival, glucose 54, lactic acid 5.4, t bili 0.5, ast 358, alt pending at 9 am, was 24 at 4 am, alk phos 36, CXR progressive patchy infiltrates
with air bronchograms - ARDs. She has been intubated and now on FiO2 100%; has suffered multiple codes which are currently ongoing, she is currently being canulated for ECMO and is accepted in transfer to another institution.
Past History
Additional Past Medical History:
Narcotic abuse-currently in rehab; denies IV drug abuse
Past Surgical History: None
Allergy History:
No Known Allergies Allergy (Unverified 06/09/23 13:58)
Medications Reviewed: Yes
Social History
Tobacco: Vaping
Alcohol: None
Drug: None
Personal:
Family History
Family History: Not Pertinent
Review of Systems
Review of Systems
unable to obtain due to the condition of the patient
Vital Signs
Temp Pulse Resp BP Pulse Ox
99.7 F 141 32 67/44 67
06/10/23 07:35 06/10/23 07:15 06/10/23 07:15 06/10/23 07:00 06/10/23 08:09
Physical Exam
Physical Exam
Constitutional: Acutely Ill, Chronically Ill and Obese
Cardiovascular: Regular Rate
Pulmonary: Symmetric
Gastrointestinal: Non Distended
Skin: Dry
Neurological: Negative Awake
limited due to the condition of the patient - actively being resuscitated
Lab / Diagnostic Study Results
Total Counted 100 06/10/23 04:36
Abs Neuts (Manual) 1.9 10^3/uL (1.4-6.5) 06/10/23 04:36
Segmented Neutrophils 43 % (42-75) 06/10/23 04:36
Band Neutrophils 29 % (0-3) H 06/10/23 04:36
Lymphocytes (Manual) 25 % (20-51) 06/10/23 04:36
PT 16.3 Sec (11.4-14.6) H 06/09/23 16:48
INR 1.33 06/09/23 16:48
Lactic Acid 5.4 mmol/L (0.7-2.0) H* 06/10/23 04:36
Procalcitonin 35.50 ng/ml (0.0-0.25) H* 06/09/23 18:00
Microbiology Results
Micro:
04/02/24 23:58 Nasal Screen MRSA (PCR) - Pending
Nose
06/09/23 16:56 Legionella Urinary Antigen - Final
Urine Negative for Legionella pneumophila Serogroup 1 antigen.
A negative result does not rule out the possiblity of
Legionella infection due to other serogroups or species of
Legionella. Clinical correlation is recommended.
Streptococcus pneumoniae Antigen (M - Final
Negative for Streptococcus pneumoniae antigen.
A negative result does not exclude infection with
Streptococcus pneumoniae. Clinical correlation is
recommended.
06/09/23 14:16 Influenza Types A & B (MOLLY) - Final
Nasal Swab Influenza A Positive, NAAT
06/09/23 14:15 Blood Culture - Pending
Blood/Venous
06/09/23 14:16 Blood Culture - Pending
Blood/Venous
Assessment / Plan
Severe Influenza A - Complicated by pneumonia
Multisystem Organ Failure
VANIA, Shock Liver, hypoxemic resp failure
Leukopenia
Class III Obesity
Narcotic abuse
- sputum culture if able to produce one
- blood cultures x2 are in progress
- electrolyte replacement per primary team
- goal euglycemia
- note severely elevated procalcitonin in the setting of shock, normal renal function (shock can also elevate procal)
- if she has another fever then I would resend blood cultures x2 while febrile
- continue tamiflu - plan 10 day course - standard dosing is recommended in BMI >40
- can be administered via NGT - dissolve in water
- follow renal function may need a dose adjustment
- MRSA PCR +, continue vancomycin
- agree with zosyn at this time
- atypical coverage still recommended, continue azithromycin
- QTc was acceptable
- covid ag negative x1 and is likely a true negative
- will repeat x1 today, my clinical suspicion is low; most likely fulminant influenza A in unvaccinated host, risks for severe disease include BMI
- was asked to comment on barcitinib: I would not recommend barcitinib outside of treatment directed at covid-19
- steroids can be considered for management of severe pneumonia/ARDS - will defer to pulmonary
- agree with HIV screen and asked lab to expedite testing - expected later today - I will recheck the chart
- droplet isolation
- follow clinically
Hgb Drop
- management per primary team
Prognosis guarded; patient is critically ill
Care Review
Plan reviewed with: Physician (Dr Scott)
[2023-06-10] MEDS: ADRENALIN 250 IV (09:28)
[2023-06-10 09:29] LABS: AST (SGOT) 358 U/L (14-36); Albumin 1.9 g/dl (3.5-5.0); Alkaline Phosphatase 36 U/L (38-126); Blood Urea Nitrogen 26 mg/dl (7-17); Calcium 5.7 mg/dl (8.4-10.2); Carbon Dioxide 21 mmol/L (22-30); Chloride 101 mmol/L (98-107); Estimated Creatinine Clearance 49 ml/min; Glucose 54 mg/dl (70-99); Magnesium 2.2 mg/dl (1.6-2.3); Phosphorus 8.3 mg/dl (2.5-4.5); Potassium 3.8 mmol/L (3.5-5.1); Sodium 140 mmol/L (135-145); Total Bilirubin 0.5 mg/dl (0.2-1.3); Total Protein 3.5 g/dl (6.3-8.2); eGFR 36.89
--- NOTE | 2023-06-10 09:35 | PTCARENOTE ---
Received pt this am paralyzed, sedated, hypoxic and hypotensive on gtts as charted. Suhail added shortly after shift started, then when nurse anesthesist was attempting art line, pt end tidal and hr dropped with a loss of pulses requiring initiation
of cpr. Vecuronium and propofol stopped during first code. Please refer to code sheets.
[2023-06-10] MEDS: HEPARIN 10000 UNITS IV (09:39)
[2023-06-10 09:42] LABS: ALT (SGPT) 266 U/L (0-35)
--- NOTE | 2023-06-10 09:43 | PTCARENOTE ---
[CARDIOVASCULAR TEAM AT BEDSIDE TO CANNULATE PT FOR ECMO
--- NOTE | 2023-06-10 09:55 | PHA.VAN.FU ---
Vancomycin Assessment / Plan
- Assessment
Renal Function: SCR Decreasing
Concomitant Antimicrobials: piperacillin/tazobactam, azithromycin, oseltamivir
- Dosing Plan
Adjust Regimen to: dosing by level
Received the following doses to date:
2000mg - 06/08 17:27
1000mg - 06/09 05:23
SCR steadily increasing since admission - no further dosing today
- Monitoring Plan
Random Level: 06/10 0600
- Follow Up
Pharmacy will continue to follow.
Vancomycin Follow UP
- -
Patient Age: 28
Patient Sex: Female
Vancomycin Day #: 2
Indication: Pulmonary/Respiratory
Requesting Provider: Dr. Scott / Carlos
Pertinent Antimicrobial Allergies:
no pertinent antimicrobial allergies
Height / Weight:
Height 5 ft 1 in
Actual Weight 100.1 kg
IBW in k.8
Adjusted BW in k.3
Pertinent Past Medical History: BMI ~41, hx IV drug abuse
- Vital Signs / Lab Results
Temp Pulse Resp BP Pulse Ox
99.7 F 123 17 110/74 56
06/10/23 07:35 06/10/23 09:38 06/10/23 09:38 06/10/23 09:38 06/10/23 09:38
Lab Results - Hematology
06/09/23 06/09/23 06/10/23
14:16 16:48 04:36
WBC 1.7 L* 0.7 L* 2.7 L
Band Neutrophils 26 H 29 H
06/10/23
08:52
WBC 3.1 L
Band Neutrophils
Lab Results - Chemistry
06/09/23 06/09/23 06/09/23
14:16 16:48 23:58
BUN 13 15 21 H
Creatinine 0.9 0.9 1.1 H
Estimated Creat Clear 102 102 84
Albumin 4.5
06/10/23 06/10/23
04:36 08:52
BUN 24 H 26 H
Creatinine 1.5 H 1.9 H
Estimated Creat Clear 62 49
Albumin 3.0 L D 1.9 L
06/09/23 06/09/23 06/09/23
14:16 16:48 17:00
Lactic Acid 3.2 H 3.4 H Cancelled
06/09/23 06/10/23
22:20 04:36
Lactic Acid 4.1 H* 5.4 H*
Microbiology Results
06/09/23 23:58 Nasal Screen MRSA (PCR) - Final
Nose Staph aureus MRSA
06/09/23 16:56 Legionella Urinary Antigen - Final
Urine Negative for Legionella pneumophila Serogroup 1 antigen.
A negative result does not rule out the possiblity of
Legionella infection due to other serogroups or species of
Legionella. Clinical correlation is recommended.
Streptococcus pneumoniae Antigen (M - Final
Negative for Streptococcus pneumoniae antigen.
A negative result does not exclude infection with
Streptococcus pneumoniae. Clinical correlation is
recommended.
06/09/23 14:16 Influenza Types A & B (MOLLY) - Final
Nasal Swab Influenza A Positive, NAAT
--- NOTE | 2023-06-10 09:56 | PTCARENOTE ---
pt is now on ecmo
[2023-06-10] MEDS: SUBLIMAZE 100 MCG IV (10:00)
[2023-06-10] MEDS: SUBLIMAZE 100 IV (10:01)
--- NOTE | 2023-06-10 10:21 | W.PN.UPDATE ---
Update Note
Progress Note Update
Patient remains critically ill, unfortunately her condition has deteriorated since this morning.
Suspected ARDS from influenza A, suspect bacterial superinfection.
MRSA screening is positive. There is no sputum culture blood cultures available at this point.
-
Since about 8 AM this morning, patient had refractory hypoxemia.
Multiple bedside evaluation by myself, her chest x-ray this morning showed worsening bilateral infiltrates.
Despite maximal mechanical ventilation, including high PEEP, 100% FiO2, 1: 1 I: E ratio, permissive hypercapnia, paralysis and heavy sedation patient had refractory hypoxemia with pulse ox in the 60s.
She also developed multiorgan failure with worsening renal function, shock requiring 3 vasopressors including norepinephrine, Suhail-Synephrine, vasopressin.
Arterial line was attempted multiple times at the bedside without success.
Due to hemodynamic instability she did not qualify for prone positioning.
While evaluating the patient, end-tidal volume abruptly dropped, she developed PEA cardiac arrest. ACLS protocol was started.
Initially CPR was performed with good quality based on end-tidal CO2, 3 rounds of epinephrine were given with regain of spontaneous circulation.
Shortly after again developed PEA cardiac arrest for the second time. At this time 2 additional rounds of epinephrine were given with adequate CPR.
Mtzmq-hy-lftm ultrasound performed by cardiology demonstrated global hypokinesis with ejection fraction around 10 to 15%. There is no pericardial effusion.
Prior to these mechanical ventilation settings did not show any drop in tidal volume or increased on peak pressures.
Stat chest x-ray did not demonstrate pneumothorax. There was worsening bilateral infiltrates.
She again developed additional cardiac arrest similar to above. Required 1 round of epinephrine.
Throughout the course of the ACLS protocol, she also received multiple doses of bicarbonate and calcium.
The rhythm was always sinus tachycardia. There is no ventricular fibrillation or ventricular tachycardia.
At this point patient was placed on an epinephrine drip, she remained in altered 3 vasopressors with poor hemodynamics and hypoxemia.
In consultation with our cardiothoracic surgeons, they were willing to cannulate to transition to VA ECMO.
Dr. Vergara came to the bedside, performed cannulation together with interventional cardiology.
Family was updated by myself multiple times regarding the seriousness of the situation.
Shortly after VA ECMO was provided, pulse ox increased to over 90%.
Mechanical ventilation settings were adjusted to assist-control 300/10/8 of PEEP/100%. Will continue to decrease FiO2 as able.
With this peak pressure was 32, plateau pressure 29.
Patient will remain on heavy sedation with fentanyl.
Currently remains on norepinephrine/Suhail-Synephrine/vasopressin and epinephrine drip-will wean down as able based on hemodynamics.
Will monitor electrolytes and renal function closely.
Vecuronium has been held for now.
-
I personally have discussed the case multiple times with cardiology, CT surgery and primary team.
She has been accepted by [facility] team.
Patient understands the patient remains critically ill, there is uncertainty regarding possible ischemic brain injury. I discussed this in detail with the family. There is no way to assess at this point.
Hopefully in the future sedation can be weaned off.
-
Prognosis is guarded.
-
Critical care statement: A total of 120 minutes of critical care time was provided for this patient today. This includes management of unstable vital signs, evaluation of the patient at bedside, reviewing the patient's pertinent medical records
including ventilator settings, arterial blood gases, radiographs, microbiology, laboratory evaluations and discussion with primary team, critical care nursing, and respiratory therapy.
--- NOTE | 2023-06-10 10:29 | CM ---
CM following re: discharge planning.
Reviewed pt's chart, met with pt's Kervin (Vijay) and pt's mother in law. Emotional support offered and provided.
Pt is a 28 year old female, admitted with primary dx of Myalgias, fever, cough, and shortness of breath. Pt has suffered multiple codes, she is currently being canulated for ECMO and is accepted in transfer to another institution.
Per , he and the pt and their 2 year old son live in [facility] a 2SH, 2 steps to enter. Pt's stated his is currently at [employer], serves as a police and has been dealing with his spouse addictions for years. Pt's
stated that his spouse sent to [facility] [place] for a watermaster residential D&A treatment program and it was expected that pt stays in the program for more than 90 days.
D/C plan: transfer to [facility].
--- NOTE | 2023-06-10 10:33 | W.PN.UPDATE ---
Update Note
Progress Note Update
Procedure code: Cardiorespiratory arrest, ACLS.
PEA cardiac arrest while being evaluated at the bedside, effective CPR immediately started, end-tidal CO2 was followed. Patient received 3 rounds of epinephrine, at least 2 rounds of bicarbonate drip, calcium. She regained spontaneous circulation.
She was placed on an epinephrine drip.
Again later on about 10 to 15 minutes later developed similar pattern. Decreased end-tidal CO2, loss of pulse. CPR restarted, 2 rounds of epinephrine given. Bicarbonate was given with regain of a spontaneous circulation.
Bedside ultrasound performed, there was no pericardial effusion or pneumothorax.
Pulse oximetry was decreased throughout the course of the ACLS protocol.
Again patient lost pulse, CPR restarted, additional round of epinephrine given. Epinephrine drip restarted.
Patient regained spontaneous circulation.
Subsequently, VA ECMO was started, so far patient has stabilized. Remains on multiple vasopressors.
Family has been updated.
[2023-06-10 10:45] LABS: Glucose - Point of Care 68 mg/dl (70-99)
[2023-06-10 10:51] LABS: B.E. -13.9 mmol/L; Hematocrit 25.3 % (37.0-47.0); Hemoglobin 8.4 g/dL (12.0-16.0); Mean Corp Hgb Conc. 33.2 g/dL (33.0-37.0); Mean Corpuscular Hgb 28.5 pg (27.0-31.0); Mean Corpuscular Volume 85.8 fL (81.0-99.0); Mean Platelet Volume 9.5 fL (7.4-10.4); O2 Saturation % 98.5 % (94-98); PCO2 32 mmHg (32-35); PO2 310 mmHg (83-108); Platelet Count 156 10^3/uL (130-400); Red Blood Cell Count 2.95 10^6/uL (4.20-5.40); Red Cell Dist. Width 13.2 % (11.5-14.5); White Blood Cell Count 4.1 10^3/uL (4.8-10.8); pH 7.21 (7.35-7.45)
[2023-06-10 11:01] LABS: HCO3 12.8 mmol/L (21-28)
[2023-06-10 11:04] LABS: HIV Combo Negative (Negative)
[2023-06-10 11:12] LABS: B.E. - POC -13.1 mmol/L; Glucose - POC 96 mg/dl (65-99); HCO3 - POC 14 mmol/L (21-29); Hematocrit - POC 26 % PCV (37-47); Hemodilution- POC Yes; Hemoglobin Calculated - POC 8.8; Ionized Calcium - POC 0.89 mmol/L (1.12-1.27); O2 Saturation %Calculated-POC 99.9 5 (92-96); PCO2 - POC 36 mmHg (35-45); PO2 - POC 401 mmHg (80-100); Potassium - POC 3.7 mmol/L (3.6-5.0); Sodium - POC 141 mmol/L (135-145)
[2023-06-10] MEDS: PITRESSIN 100 IV (11:28)
[2023-06-10 11:40] LABS: APTT > 200 Sec (23.4-35.0)
[2023-06-10 11:42] LABS: Alkaline Phosphatase 36 U/L (38-126); Blood Urea Nitrogen 28 mg/dl (7-17); Calcium 6.7 mg/dl (8.4-10.2); Carbon Dioxide 12 mmol/L (22-30); Chloride 103 mmol/L (98-107); Estimated Creatinine Clearance 40 ml/min; Glucose 57 mg/dl (70-99); Potassium 3.9 mmol/L (3.5-5.1); Sodium 138 mmol/L (135-145); Total Bilirubin 0.7 mg/dl (0.2-1.3); Total Protein 3.8 g/dl (6.3-8.2); eGFR 29.33
[2023-06-10 12:38] LABS: ALT (SGPT) 1210 U/L (0-35); AST (SGOT) 1578 U/L (14-36)
[2023-06-10] MEDS: DILAUDID 50 IV (12:39)
[2023-06-10 12:40] LABS: B.E. - POC -15.4 mmol/L; Glucose - POC 77 mg/dl (65-99); HCO3 - POC 17 mmol/L (21-29); Hematocrit - POC 30 % PCV (37-47); Hemodilution- POC Yes; Hemoglobin Calculated - POC 10.1; Ionized Calcium - POC 0.91 mmol/L (1.12-1.27); PCO2 - POC 72 mmHg (35-45); PO2 - POC 35 mmHg (80-100); Potassium - POC 4.1 mmol/L (3.6-5.0); Sodium - POC 142 mmol/L (135-145); pH - POC 6.97 (7.35-7.45)
[2023-06-10 12:51] LABS: PCO2 40 mmHg (32-35); PO2 252 mmHg (83-108)
[2023-06-10 12:52] LABS: HCO3 13.9 mmol/L (21-28); pH 7.15 (7.35-7.45)
--- NOTE | 2023-06-10 12:53 | PTCARENOTE ---
Addendum entered by Silvana Carvalho RN 06/10/23 18:08:
correction, Jacquelyn AHUMADA
Original Note:
pt currently having echo at bedside
epi weaned per Jacquelyn HDZ and pulse ox of right upper extremity now in 90s on ecmo
had been weaning lacy as originally requested, but now increased to 240 mcg/min to keep map 60 or greater, maintained on levo, vasopressin gtts as well. will switch ivf to bicarb with dextrose as pt has been hypoglycemic on labs.
[2023-06-10 12:59] LABS: Hematocrit 27.6 % (37.0-47.0); Mean Corp Hgb Conc. 32.6 g/dL (33.0-37.0); Mean Corpuscular Hgb 28.4 pg (27.0-31.0); Mean Corpuscular Volume 87.1 fL (81.0-99.0); Mean Platelet Volume 9.6 fL (7.4-10.4); Platelet Count 152 10^3/uL (130-400); Red Blood Cell Count 3.17 10^6/uL (4.20-5.40); Red Cell Dist. Width 13.2 % (11.5-14.5); White Blood Cell Count 3.4 10^3/uL (4.8-10.8)
[2023-06-10] MEDS: CALCIUM GLUCONATE 10% INJECTION 121.504999999999995 MEQ IV (13:02)
[2023-06-10 13:05] LABS: Albumin 2.6 g/dl (3.5-5.0); Alkaline Phosphatase 41 U/L (38-126); Blood Urea Nitrogen 29 mg/dl (7-17); Calcium 6.4 mg/dl (8.4-10.2); Carbon Dioxide 12 mmol/L (22-30); Chloride 100 mmol/L (98-107); Estimated Creatinine Clearance 39 ml/min; Glucose 88 mg/dl (70-99); Sodium 137 mmol/L (135-145); Total Bilirubin 1.1 mg/dl (0.2-1.3); Total Protein 4.5 g/dl (6.3-8.2); eGFR 27.87
--- NOTE | 2023-06-10 13:10 | PTCARENOTE ---
During system review, noted R foot to be white, cool and pulseless. Die Maker Trim contacted Dr Vergara to make aware and catheter placed with immediate color improvement. Flow noted via doppler but unable to locate pulse. Otherwise adjusting pressors
as able. See flowsheets.
[2023-06-10 13:11] LABS: Lactic Acid 15.5 mmol/L (0.7-2.0)
[2023-06-10 13:14] LABS: ALT (SGPT) 1916 U/L (0-35)
[2023-06-10 13:16] LABS: B.E. - POC -14.2 mmol/L; Glucose - POC 69 mg/dl (65-99); HCO3 - POC 13 mmol/L (21-29); Hematocrit - POC 37 % PCV (37-47); Hemodilution- POC Yes; Hemoglobin Calculated - POC 12.7; Ionized Calcium - POC 0.85 mmol/L (1.12-1.27); O2 Saturation %Calculated-POC 99.8 5 (92-96); PCO2 - POC 33 mmHg (35-45); PO2 - POC 301 mmHg (80-100); Potassium - POC 4.1 mmol/L (3.6-5.0); Sodium - POC 141 mmol/L (135-145)
[2023-06-10 13:22] LABS: APTT > 200 Sec (23.4-35.0)
[2023-06-10 13:28] LABS: AST (SGOT) 2693 U/L (14-36)
--- NOTE | 2023-06-10 13:36 | PTCARENOTE ---
ivf increased to 150ml/hr based off repeat labs, weaning lacy as able. rr has been increased to 14
--- NOTE | 2023-06-10 13:49 | HOSPNOTE ---
Continue to support family while here at .
--- NOTE | 2023-06-10 14:20 | W.PN.CT.SURG ---
CT Surgery Operative Note
-
Pre-op Diagnosis: Cardiac arrest secondary to respiratory failure secondary to influenza A
Post-op Diagnosis: Same
Procedure: Emergent right common femoral artery and vein cannulation for venous�arterial ECMO/E-CPR, commencement of venoarterial ECMO
Comorbidities:
1. Acute hypoxic respiratory failure secondary to influenza A infection
2. Bilateral pneumonia
3. Neutropenic
4. Narcotic abuse
5. Morbidly obese with a BMI greater than 40
6. Vaping
7. Cardiovascular collapse secondary to respiratory failure requiring CPR
Primary Surgeon: Ignacio Veragra MD, MS
Assisting Surgeons: Raúl Boogie DO & Joyce Myers MD, Jacquelyn Mena NP
Specimen: None
Cultures: None
Complications / Blood Loss: 200cc
Findings: I was contacted as this patient was currently in cardiac arrest requiring CPR. She in brief is a 28-year-old female who had influenza A and later developed respiratory failure and resulted in cardiopulmonary collapse requiring CPR. I
immediately mobilized the operating room team. The patient was prepped and draped sterilely as possible. The right common femoral artery and vein were accessed using ultrasound and Seldinger technique with a long J-wire. A 15 Georgian arterial
cannula was then inserted into the right common femoral artery and secured. A 25 Georgian venous cannula was inserted into the right common femoral vein and secured. At this point perfusion had primed the lines for the ECMO circuit. The venous and
arterial were then mounted wet to wet and then burped to remove any small bubbles. The cannula was then unclamped and ECMO was commenced. There was immediate effect with improvement in saturations and return of cardiac function. Patient was able
to reach approximately 5 L of flow no significant resistance. Chest x-ray was ordered.
Ignacio Vergara MD, MS
Cardiothoracic Surgeon
[facility]
This dictation was created using the [employer] dictation system. Please excuse any grammatical, typographical, or 'sound alike' errors.
06/10/2023
[2023-06-10] MEDS: DILAUDID 1 MG IV (14:26)
--- NOTE | 2023-06-10 14:30 | W.PN.CT.SURG ---
CT Surgery Operative Note
-
Pre-op Diagnosis: Right lower extremity ischemia
Post-op Diagnosis: Same
Procedure: Placement of distal perfusion cannula using Seldinger technique and ultrasound guidance with micropuncture
Comorbidities:
1. Acute hypoxic respiratory failure secondary to influenza A infection
2. Bilateral pneumonia
3. Neutropenic
4. Narcotic abuse
5. Morbidly obese with a BMI greater than 40
6. Vaping
7. Cardiovascular collapse secondary to respiratory failure requiring CPR
Primary Surgeon: Ignacio Vergara MD, MS
Assisting Surgeons: Jacquelyn Mena NP
Specimen: None
Cultures: None
Complications / Blood Loss: 20cc
Findings: The right groin was then prepped again in a sterile fashion. I used an ultrasound in order to locate the SFA just distal to the common femoral artery ECMO puncture site. Using a micropuncture and ultrasound, I entered this vessel and
placed a 6 Iraqi cannula. The ECMO circuit was temporarily stopped in order to place perfusion line while off the mean arterial cannula. This was left up to the 6 Iraqi sheath which was then de-aired. Flow was then opened to the distal leg.
The sheath was then secured. ECMO was restarted.
Ignacio Vergara MD, MS
Cardiothoracic Surgeon
[facility]
This dictation was created using the [employer] dictation system. Please excuse any grammatical, typographical, or 'sound alike' errors.
06/10/2023
--- NOTE | 2023-06-10 14:33 | W.PN.UPDATE ---
Update Note
Progress Note Update
Patient with recurrent PEA arrest events following initial code this AM requiring multiple rounds of CPR with chest compressions and Epi. During repeat code events conferred with supervisor train operations, CT surgeon and interventional cardiology and made the
plan for ECMO. Now working to secure tertiary care transfer. Labs ordered and rechecked multiple times throughout today with new VANIA and shock liver lab values. Case discussed multiple times at length with nursing staff, code team, and supervisor train operations.
Critical care time 2 hours and 15 minutes being billed separately with this update note.
--- NOTE | 2023-06-10 14:40 | PTCARENOTE ---
Pt was moving all extremities, coughing, overbreathing vent. Bolus of dilaudid given and propofol restarted in anticipation of transfer.
[2023-06-10 15:06] LABS: COVID-19 Antigen Negative (Negative)
[2023-06-10 15:21] LABS: B.E. - POC -7.2 mmol/L; Glucose - POC 128 mg/dl (65-99); HCO3 - POC 18 mmol/L (21-29); Hematocrit - POC 28 % PCV (37-47); Hemodilution- POC Yes; Hemoglobin Calculated - POC 9.4; O2 Saturation %Calculated-POC 99.9 5 (92-96); PCO2 - POC 36 mmHg (35-45); PO2 - POC 321 mmHg (80-100); Potassium - POC 3.8 mmol/L (3.6-5.0); Sodium - POC 140 mmol/L (135-145); pH - POC 7.32 (7.35-7.45)
[2023-06-10] MEDS: HEPARIN 3000 UNITS IV (15:27)
--- NOTE | 2023-06-10 15:36 | CHAP ---
Emotional and spiritual support provided throughout the day for Mrs. Puri's and mother in law.
[2023-06-10 16:02] LABS: ACT-LR - POC 203 Seconds (116-155)
[2023-06-10 16:02] LABS: ACT-LR - POC 274 Seconds (116-155)
[2023-06-10 16:02] LABS: ACT-LR - POC 385 Seconds (116-155)
[2023-06-10 16:02] LABS: ACT-LR - POC 372 Seconds (116-155)
--- NOTE | 2023-06-10 18:15 | PTCARENOTE ---
[facility] stat team in to transfer pt to [place]. Report given to team and then Fransisca called and was given report prior to transfer. and mother in law left when transport team arrived with belongings from room.
--- NOTE | 2023-06-10 18:34 | CONSULT.CT ---
Consultation
-
Date/Time Consultation Requested: 06/09 899
Date/Time Consultation Performed: 06/09 899
Requesting Provider: Jose
Performing Provider: Rajesh Vergara MD
Reason for Consultation: ECMO eval
Patient History
Physicians
Family Physician: unknown
Outpatient Perl Programmer: none
History of Present Illness
28-year-old female with past medical history significant for opioid abuse presented to [facility] on 06/08 with influenza A and bilateral pneumonia. Subsequently overnight she was admitted to the ICU and was intubated for hypoxia. She
developed ARDS and this morning she was in refractory hypoxia. Due to this refractory hypoxia a code 9 was called and I went to bedside to evaluate the patient for ECMO. Dr. Vergara was notified and patient was percutaneously cannulated at bedside
during the code 9. There was successful cannulation and patient was placed onto a NovoL[employer] circuit for VA ECMO.
Past Medical History
Past Medical History: Other
Opioid drug abuse
Past Surgical History
Past Surgical History: None
Dental History
Unknown
Family History
Mother: Still Living
Father: N/A
Family Medical History: Unable to Obtain
Social History
Alcohol: Other (Unknown)
Drug: Former User
Tobacco: Vaping
Personal:
Living: Other (Rehab)
Allergies
Allergy/AdvReac Type Severity Reaction Status Date / Time
No Known Allergies Allergy Unverified 06/09/23 13:58
Home Medications
�Medication �Instructions �Recorded �Confirmed �Type
acetaminophen 325 mg tablet 625 mg PO DAILYPRN PRN FEVER 06/09/23 06/09/23 History
(Tylenol)
atomoxetine 25 mg capsule 25 mg PO DAILY Mental 06/09/23 06/09/23 History
(Strattera) Health/Anxiety
celecoxib 200 mg capsule (Celebrex) 200 mg PO DAILY Pain 06/09/23 06/09/23 History
bnronwpti-OQI-AX-acetaminophen 7.5 15 ml PO DAILYPRN PRN COLD LIKE 06/09/23 06/09/23 History
mg-60 [id number]/30mL oral liqd SYSTOMS
hydroxyzine HCl 50 mg tablet 50 mg PO Q8HPRN PRN ANXIETY 06/09/23 06/09/23 History
ibuprofen 200 mg tablet (Advil) 200 mg PO DAILYPRN PRN MILD PAIN 06/09/23 06/09/23 History
mirtazapine 15 mg tablet 15 mg PO HS Mental Health/Anxiety 06/09/23 06/09/23 History
naltrexone 50 mg tablet 50 mg PO HS SUBSTANCE USE DISORDER 06/09/23 06/09/23 History
omeprazole 20 mg tablet,delayed 20 mg PO DAILY Gastrointestinal 06/09/23 06/09/23 History
release Issue
ondansetron HCl 4 mg tablet 4 mg PO Q6HPRN PRN NASUEA 06/09/23 06/09/23 History
Review of Systems
-
Unable to obtain full review of systems at this time due to: Patient Intubation
Physical Exam
Vital Signs
Temp 98.3 F 06/10/23 14:00
Temp route: Axillary 06/10/23 14:00
Pulse 120 06/10/23 15:00
Rhythm: Sinus tachycardia 06/10/23 14:00
Resp Rate 14 06/10/23 14:45
Blood pressure 34/27 06/10/23 11:20
Blood pressure extremity used: Left upper arm 06/09/23 13:58
Position: Sitting 06/09/23 13:58
MAP (cuff-Tom Monitor) 64 06/10/23 11:41
SaO2 82 06/10/23 13:45
Nasal Cannula flow liters per minute 60 06/09/23 20:31
Oxygen Mode of Delivery Ventilator 06/10/23 08:00
Other oxygen comment RR24/100%/350/PEEP 24 06/09/23 23:06
Flow liters per minute # 60 06/09/23 20:30
% Oxygen delivered 100 06/10/23 08:00
Can the patient verbally communicate their pain? No 06/10/23 08:00
Pain scale rating: Pt states unable to rate 06/09/23 20:27
Arterial Systolic Pressure 95 06/10/23 15:15
Arterial Diastolic Pressure 85 06/10/23 15:15
MAP (X-Adxx-Wbmcdkq Monitor) 88 06/10/23 15:15
Actual Weight 100.1 kg 06/10/23 05:39
Body Mass Index (BMI) 41.7 06/10/23 05:39
etC02 value 10 06/10/23 15:00
Labs
PT 16.3 Sec (11.4-14.6) H 06/09/23 16:48
APTT Cancelled 06/10/23 14:36
Troponin I < 0.012 ng/ml 06/09/23 14:16
Rap-D-Dinwvxsphmt Pept 165 pg/ml 06/09/23 14:16
Arterial Blood Gases
pH Cancelled 06/10/23 14:37
pCO2 Cancelled 06/10/23 14:37
pO2 Cancelled 06/10/23 14:37
HCO3 Cancelled 06/10/23 14:37
Base Excess Cancelled 06/10/23 14:37
ABG O2 Sat (Measured) Cancelled 06/10/23 14:37
Sodium 130 mMOL/L (136-145) L 06/09/23 23:38
Potassium 5.6 mMOL/L (3.5-5.1) H 06/09/23 23:38
O2 Delivery Level Cancelled 06/10/23 14:37
Exam
General: Well Developed and Respiratory Distress
HEENT: Normocephalic
Respiratory: Other (Intubated)
Cardiac: Irregular Rhythm
GI: Non Tender, Normal Bowel Sounds and Other (Obese)
Rectal: Deferred by Provider
Skin: Other (Called)
Neuro: Sedated
Extremities: Lower Level Edema (Trace)
Lymph: No Lymphadenopathy
Psych: Other (Intubated and sedated)
Assessment / Plan
-
28-year-old female with past medical history of opioid drug abuse presented to [facility] with influenza A. She was subsequently intubated overnight and had refractory hypoxia leading to a code [address] surgery was consulted for
ECMO cannulation.
#Refractory hypoxia leading to a cardiac arrest
-Patient was cannulated for VA ECMO via right femoral groin by Dr. Vergara
-Wean epi to 2 in order to prevent north-south syndrome
-Continue vasopressors for MAP greater than 65
-Monitor ABG and blood work every 2 hours
-Will place blood products on hold
-Vent support per primary team
Data Reviewed
-
Ultrasound: Image Personally Visualized and interpreted
Labs: Labs Reviewed by me, Discussed with Physician and Discussed with Nurse
Critical Care Time (in minutes): 95
Total Time Spent with Patient (in minutes): 75
[2023-06-11 07:51] LABS: ACT-LR - POC > 397 Seconds (116-155)
--- NOTE | 2023-06-11 09:09 | W.DCSUMMARY ---
Discharge Summary
Discharge Data
Date of Admission: 06/09/23
Date of Discharge: 06/10/23
-
Pending Results: No
Hospital Course
Primary diagnosis:
Acute rapidly progressive ARDS [adult respiratory distress syndrome]
Septic shock
Bilateral pneumonia
Acute influenza A infection
Secondary diagnosis:
Narcotic dependency currently in rehab
Hospital course:
28-year-old female who was in a local drug rehab presented with 3 days symptoms of myalgias, cough and shortness of breath. Her symptoms were rather quickly progressive and on presentation to the hospital she was in distress due to shortness of
breath and severely hypoxic. She was initially attempted on noninvasive ventilatory support and oxygen support but she deteriorated quickly requiring ventilator support. He went on the ventilator support within few hours she had rapid
deterioration of hypoxemia and difficult to ventilate. Along with that she was also severely hypotensive requiring multiple pressors. She was COVID-negative. She was positive for influenza A.
Unclear the rapid ARDS development which still could be influenza A. She is also on daily vaping.
She had PEA code at least 3 times in the ICU. There were multiple subspecialists involved including cardiothoracic surgery who did a bedside cannulation from ECMO and was temporarily placed on ECMO. She was transferred to [facility] for
ECMO support and further treatments.
Consultants on board:
Real Estate Developer-Dr. Garcia
Cardiothoracic surgery-Dr. Vergara
Cardiology-Dr. Ireland
Infectious disease-Dr. Gonzalez
Discharge Plan
-
Patient Disposition: Acute Care Hospital
Condition: Critical
Discharge Orders:
Discharge Patient (As Directed); Ordered 06/10/23
Ordered By: Jennifer Mena
Discharge Date and Time
Discharge Date/Time: 06/10/23 19:05
Print Language: ARABIC
== END 2023-06-10 19:05 | disposition short-term general hospital (02) | DRG 3 ==
LOC: ICU 16:24
PROVIDERS: Nurse Practitioner Primary Care; Thoracic Surgery (Cardiothoracic Vascular Surgery); ADMITTING PHYSICIAN Internal Medicine; ATTENDING PHYSICIAN Internal Medicine; CONSULT PHYSICIAN Internal Medicine Cardiovascular Disease; CONSULT PHYSICIAN Internal Medicine Critical Care Medicine; CONSULT PHYSICIAN Student in an Organized Health Care Education/Training Program; EMERGENCY PHYSICIAN Emergency Medicine; OTHER PHYSICIAN Clinical Nurse Specialist Acute Care
PROC: 5A1935Z Respiratory Ventilation, Less than 24 Consecutive Hours (ICD-10-PCS; 2023-06-09)
PROC: 0BH17EZ Insertion of Endotracheal Airway into Trachea, Via Natural or Artificial Opening (ICD-10-PCS; 2023-06-09)
PROC: 5A1522G Extracorporeal Oxygenation, Membrane, Peripheral Veno-arterial (ICD-10-PCS; 2023-06-10)
PROC: 5A12012 Performance of Cardiac Output, Single, Manual (ICD-10-PCS; 2023-06-10)
PROC: 02HV33Z Insertion of Infusion Device into Superior Vena Cava, Percutaneous Approach (ICD-10-PCS; 2023-06-10)
DX: A41.89 Other specified sepsis (principal); I46.8 Cardiac arrest due to other underlying condition; J10.00 Influenza due to other identified influenza virus with unspecified type of pneumonia; J80 Acute respiratory distress syndrome; R65.21 Severe sepsis with septic shock; K72.00 Acute and subacute hepatic failure without coma; J15.9 Unspecified bacterial pneumonia; R57.0 Cardiogenic shock; F11.20 Opioid dependence, uncomplicated; E87.20 Acidosis, unspecified; R71.0 Precipitous drop in hematocrit; N17.9 Acute kidney failure, unspecified; Z68.41 Body mass index [BMI] 40.0-44.9, adult; F17.290 Nicotine dependence, other tobacco product, uncomplicated; E66.01 Morbid (severe) obesity due to excess calories; D70.9 Neutropenia, unspecified; I10 Essential (primary) hypertension; Z11.52 Encounter for screening for COVID-19; Z79.1 Long term (current) use of non-steroidal anti-inflammatories (NSAID); Z79.899 Other long term (current) drug therapy
CPT/HCPCS: 33947; 33952; 36600; 71045; 80048; 80053; 81025; 82330; 82805; 82962; 83605; 83735; 83880; 84100; 84132; 84145; 84302; 84478; 84484; 84703; 85025; 85027; 85610; 85730; 86850; 86900; 86901; 86920; 86927; 87040; 87389; 87449; 87502; 87641; 87811; 87899; 93005; 93306; 94002; 94003; 96361; 96365; 96375; 99291; P9045